=== PATIENT | male | born 1955 | race African-American/Black ===

== ENCOUNTER 2017-02-22 08:57 | Emergency (ER) | payer SELFPAY ==
[~2017-02-22] VITALS: Ht 182.9 cm; Wt 74.0 kg
[2017-02-22 09:02] VITALS: BP 165/89
[2017-02-22] MEDS ORDERED: KETOROLAC 60MG/2ML VIAL IM ONE (12:00)
== END 2017-02-22 12:34 | disposition home or self-care (01) ==
LOC: ER 09:25
DX: M76.31 Iliotibial band syndrome, right leg (principal); F17.200 Nicotine dependence, unspecified, uncomplicated
CPT/HCPCS: 96372; 99283; 99406; J1885; Z7610

== ENCOUNTER 2017-12-12 18:03 | Emergency (ER) | payer SELFPAY ==
[~2017-12-12] VITALS: Ht 180.3 cm; Wt 84.0 kg
[2017-12-12 18:37] VITALS: BP 198/102
== END 2017-12-13 00:03 | disposition left against medical advice (07) ==
LOC: ER 18:03
DX: M79.604 Pain in right leg (principal)
CPT/HCPCS: 99281